=== PATIENT | male | born 2000 | race Caucasian/White ===

== ENCOUNTER 2024-09-08 21:01 | Emergency (ER) | payer MEDICAID, SELFPAY ==
[2024-09-08] VITALS (12 sets, daily range): BP systolic 101; BP diastolic 61–69; PULSE 59–104; RESP 16–18; TEMP 36.6; O2SAT 98
--- NOTE | 2024-09-08 20:45 | RT.EKG_ITS ---
APPROVED REPORT Exam: Resting ECG Reason for Exam: Seizure Patient Location: E HR:88 bpm ECG Measurements Heart Rate 88 AXIS OK 127 P 66 QRSd 88 QRS 80 QT 359 T 71 QTc 435 Conclusion Sinus rhythm...normal P axis, V-rate 60- 99 ST depressionprobable normal early repol pattern...ST depression age<55
[2024-09-08 21:31] LABS: Abs Immature Grans 0.03 10^3/uL (0.0-0.06); Absolute Basophil Count 0.07 10^3/uL (0.0-0.2); Absolute Eosinophil Count 0.16 10^3/uL (0.0-0.7); Absolute Lymphocyte Count 2.95 10^3/uL (1.2-3.4); Absolute Monocyte Count 0.92 10^3/uL (0.1-0.8); Basophils % 0.6 %; Eosinophils % 1.4 %; HCT 39.5 % (40.0-50.0); HGB 13.7 g/dL (13.5-17.5); Immature Grans % 0.3 %; Lymphocytes % 25.9 %; MCH 30.6 pg (27.0-33.0); MCHC 34.7 % (32.0-36.0); MCV 88 fL (80-95); MPV 10.3 fL (8.0-11.0); Monocytes % 8.1 %; Neutrophils % 63.7 %; Platelet Count 236 10^3/uL (130-400); RBC 4.48 10^6/uL (4.36-5.78); RDW 12.9 % (11.8-14.1); RDW-SD 41.7 fL
[2024-09-08 21:32] LABS: Absolute Neutrophil Count 7.26 10^3/uL (1.2-6.7)
[2024-09-08 21:40] LABS: Anion Gap 10.6 mmol/L (3-11); BUN 15 mg/dL (7-18); CO2 25.4 mmol/L (21.0-32.0); CREATININE 0.9 mg/dL (0.70-1.30); Calcium 9.7 mg/dL (8.5-10.1); Chloride 105 mmol/L (98-107); Estimated GFR 121.55 (mL/min/1.73m2); Glucose 103 mg/dL (74-106); Potassium 3.4 mmol/L (3.5-5.1); Sodium 141 mmol/L (136-145)
[2024-09-08 21:56] LABS: Bilirubin Negative (Negative); Blood Negative (Negative); Clarity Clear (Clear); Glucose Negative (Negative); Ketones 15 mg/dL (Negative); Leukocyte Esterase Negative (Negative); Nitrite Negative (Negative); Specific Gravity 1.025 (1.005-1.025); Urobilinogen 0.2 mg/dL (Up to 0.2)
--- NOTE | 2024-09-08 22:47 | ED.GENADUL_ITS ---
Discharge Plan Disposition Patient Disposition: Home Discharge Details Clinical Impression: Syncope Primary Care Provider: Sandy Espino ED Provider: Mary Beaver Home Meds and New Rx's Prescriptions: No Action No Known Home Meds Discharge Instructions Additional Instructions: Please call your primary care provider first thing in the morning to schedule fo llow-up appointment for further evaluation into the cause of your episode of passing out today. It is likely that there are many factors leading to your passing out, including heat, dehydration, and exertion. Your blood work, EKG, and urine was all reassuring. It did show that you are dehydrated. Is very important that you drink plenty of water throughout the day, especially while you are working. Eat regular meals, including snacks when you are working hard. If you start to feel lightheaded, please sit down and get into a cool area immediately. Ice on the back of your neck may be helpful. Practice good deep breathing. Return to emergency care if you develop new episodes of passing out, chest pains, difficulty breathing, or if you are very worried you will be rechecked again immediately. Discharge Data Discharge Date/Time-TO BE ENTERED AT DEPARTURE: 09/08/24 22:59 HPI General Date/Time Provider Initiated Documentation: 09/08/24 21:20 . HPI Narrative: Tray is a 23-year-old male who presented to the emergency department today for evaluation of syncope. 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 Symptoms worsened progressively, including impaired speech and intermittent loss of consciousness; woke up as he was getting into the stretcher. Denies any head injury or fall onto the ground during syncopal episode.. Blood glucose checked in ambulance. He does admit to decreased fluid intake today, consumed half a liter of coconut water during his 3-hour shift. Did not drink any water prior to work, primarily consumes fruits and vegetables for hydration. Denies recent illnesses, fevers, chills, unusual headaches, vision changes, change in bowel or bladder function, weakness or difficulty ambulating at this time. Currently feels high like marijuana effects but with clear vision. Past medical history significant for Hirschsprung's disease with functioning ileostomy bag. Light smoker, uses marijuana, last used 6 hours ago. No recent use of pills or intravenous drugs. Has a regular doctor for follow- up. He does report that he had a similar episode last year post-coital, resulting in fall and head injury. Related Data Home Medications ?Medication ?Instructions ?Recorded ?Confirmed Unknown [No Known Home Meds] 07/24/14 09/08/24 Allergies Allergy/AdvReac Type Severity Reaction Status Date / Time No Known Allergies Allergy Unverified 09/08/24 21:12 General Stated Complaint: [facility]Medical MERCEDES: 3 Exam Narrative Exam Narrative: General Appearance: Alert and oriented, no acute distress. Vital signs: Within normal limits. HEENT: Mild cervical lymphadenopathy, moist mucous membranes, EOMs intact. Respiratory: Clear lung sounds bilaterally, easy work of breathing. Cardiovascular: Normal heart sounds. Gastrointestinal: Soft, nondistended, nontender abdomen, ostomy bag in place on right side of abdomen, no sores. Lymphatic: Mild cervical lymphadenopathy. Neurological: Cranial nerves II-XII intact, normal [id number]-[id number], xyfzeu-to-lqip, Romberg, rapid alternating movements, balance, gait, heel-toe walk. Psychiatric: Normal. Course Vital Signs Vital signs: Vital Signs Temperature 36.6 C 09/08/24 20:59 Pulse 104 H 09/08/24 20:59 Respiratory Rate 16 09/08/24 20:59 Blood Pressure 101/61 09/08/24 20:59 Pulse Oximetry 98 09/08/24 20:59 Temperature 36.6 C 09/08/24 21:13 Temperature Source Oral 09/08/24 20:59 Pulse 104 H 09/08/24 21:13 Pulse 71 09/08/24 22:00 Respiratory Rate 18 09/08/24 21:13 Blood Pressure 101/69 09/08/24 21:13 Pulse Oximetry 98 09/08/24 21:13 Oxygen Delivery Method Room Air 09/08/24 21:13 Oxygen Flow Rate 0 09/08/24 20:59 Lab/Test Results Lab/Test Results: Laboratory Tests Range/Units 09/08/24 21:25 WBC (4.4-10.8) 10^3/uL 11.40 H RBC (4.36-5.78) 10^6/uL 4.48 Hgb (13.5-17.5) g/dL 13.7 Hct (40.0-50.0) % 39.5 L MCV (80-95) fL 88 MCH (27.0-33.0) pg 30.6 MCHC (32.0-36.0) % 34.7 RDW (11.8-14.1) % 12.9 Plt Count (130-400) 10^3/uL 236 MPV (8.0-11.0) fL 10.3 Immature Gran % % 0.3 Neutrophils % % 63.7 Lymphocytes % % 25.9 Monocytes % % 8.1 Eosinophils % % 1.4 Basophils % % 0.6 Nucleated RBC % (0.0-0.3) % 0.0 Absolute Neutrophils (1.2-6.7) 10^3/uL 7.26 H Absolute Lymphocytes (1.2-3.4) 10^3/uL 2.95 Absolute Monocytes (0.1-0.8) 10^3/uL 0.92 H Absolute Eosinophils (0.0-0.7) 10^3/uL 0.16 Absolute Basophils (0.0-0.2) 10^3/uL 0.07 Sodium (136-145) mmol/L 141 Potassium (3.5-5.1) mmol/L 3.4 L Chloride (98-107) mmol/L 105 Carbon Dioxide (21.0-32.0) mmol/L 25.4 Anion Gap (3-11) mmol/L 10.6 BUN (7-18) mg/dL 15 Creatinine (0.70-1.30) mg/dL 0.9 Est GFR (CKD-EPI 2020) (mL/min/1.73m2) 121.55 Glucose (74-106) mg/dL 103 Calcium (8.5-10.1) mg/dL 9.7 Urine Color (Yellow) Dark Yellow Urine Clarity (Clear) Clear Urine pH (5-8) 6.0 Ur Specific [place] (1.005-1.025) 1.025 Urine Protein (Neg-Trace) mg/dL Trace Urine Ketones (Negative) mg/dL 15 H Urine Blood (Negative) Negative Urine Nitrite (Negative) Negative Urine Bilirubin (Negative) Negative Urine Urobilinogen (Up to 0.2) mg/dL 0.2 Ur Leukocyte Esterase (Negative) Negative Urine Glucose (Negative) mg/dL Negative Medical Decision Making Initial Assessment: 23-year-old male presenting with symptoms of hyperventilation, lightheadedness, and numbness in hands, feet, and lips. Possible heatstroke due to exertion in a hot kitchen environment. Concentrated urine suggests inadequate hydration. Differential Diagnosis: - Hyperventilation: Symptoms include numbness in hands, feet, and lips. Plan: Advise optimal hydration and monitor for recurrence. - Heatstroke: Exertion in hot environment. Plan: Ensure adequate fluid intake and avoid excessive heat exposure. -Electrolyte imbalance - Hypoglycemia -Recreational drug use reaction - No red flags concerning for seizure, head injury, or other serious etiology requiring further blood work or diagnostic imaging ED Course: - Physical exam reassuring - Advised to drink a big glass of room temperature water. -Blood work performed - EKG obtained I independently interpreted the following tests: EKG reassuring, normal sinus rhythm rate 88, no changes consistent with acute ischemia, normal intervals. CBC notable for mild leukocytosis, likely stress demargination. Mild hypokalemia, potassium 3.4. CMP otherwise unremarkable. UA consistent with dehydration, with specific gravity 1025 and dark yellow urine U-Tox significant only for THC Final Assessment: Symptoms likely due to mixed process involving vagal nerve stimulation, lightheadedness, and hyperventilation. Possible heatstroke due to exertion. Concentrated urine suggests inadequate hydration. Physical exam reassuring. Clinical Impression: - Syncope - Mild dehydration Disposition: - Discharge: Patient to be discharged with advice on maintaining optimal h ydration and avoiding excessive heat exposure. - Follow-Up: Follow up with regular doctor at [facility]. Patient Education: Advised to maintain optimal hydration and monitor for recurrence of symptoms. Discussed the importance of fluid intake, especially in hot environments. MDM Components Evaluation: - Number of Differential Diagnoses or Management Options: Hyperventilation, Heatstroke - Amount and Complexity of Data Reviewed: Physical exam findings, patient history - Risk of Complication and Morbidity or Mortality: Low risk with proper hydration and avoidance of excessive heat exposure. Patient consented to the use of SHADIA Quality:SDOH Health Related Social Needs: No Data to Display [facility] All Active Problems (Updated 09/08/24 @ 22:47 by Mary Gonzalez) Syncope (Chronic) Social History Smoking/Tobacco Use Status: Former Tobacco Use Smoking risk assessment performed?: Yes Alcohol Intake: current Alcohol type: hard liquor Drug use: Never Substance use type: former substance user PAWSS Have you Been Recently Intoxicated or Drunk Within the Last 30 days?: Yes Have you Ever Experienced Previous Episodes of Alcohol Withdrawal?: No Have you ever Experienced Withdrawal Seizures?: No Have you ever Experienced Delirium Tremens(DT)s?: No Have you ever undergone Alcohol Rehabilitation Treatment (i.e, inpt ot outpatient treatment programs)?: No Have you ever Experienced Blackouts?: No Have you ever Combined Alcohol with other Downers within the last 90 days?: No Have you ever Combined Alcohol with any other Substance of Abuse during the last 90 days?: No Result: 1
[2024-09-08 22:51] LABS: *AMPHETAMINES SCREEN URINE Negative (Negative); *BARBITURATES SCREEN URINE Negative (Negative); *BENZODIAZEPINES SCREEN URINE Negative (Negative); Cannabinoids THC Positive (Negative); Cocaine Screen,Urine Negative (Negative); METHADONE URINE SCREEN Negative (Negative); OPIATES URINE SCREEN Negative (Negative); Tricyclic Antidepressants Negative (Negative)
== END 2024-09-08 22:59 | disposition home or self-care (01) ==
LOC: ER 22:58
PROVIDERS: Emergency Medicine Emergency Medical Services; Emergency Provider Nurse Practitioner Family; PCP Nurse Practitioner Family
DX: R55 Syncope and collapse (principal); E86.0 Dehydration
CPT/HCPCS: 99283; 99284; 36416; 82962; 80048; 80307; 93005; 81003; 85025; 93010

== ENCOUNTER 2024-09-09 01:06 | Outpatient (CLI) | payer MEDICAID, SELFPAY ==
--- NOTE | 2024-09-09 | DI.CT_ITS ---
Exam(s) CT HEAD WO EXAM: CT HEAD WO CLINICAL HISTORY: SYNCOPE AND COLLAPSE R55 LOSS OF CONSCIOUSNESS,seizure activity. TECHNIQUE: Imaging Protocol: Axial computed tomography images with coronal and sagittal reformatted images were created and reviewed COMPARISON: No exams were available for comparison FINDINGS: There are no skull fractures. There is no fluid in the visualized paranasal sinuses. There is no evidence of intracranial hemorrhage, mass effect, or shift of midline structures. There are no extra-axial fluid collections. The ventricles are not enlarged or shifted and there is no blo od within the ventricular system nor within the basal cisterns. IMPRESSION: No acute intracranial findings on this noninfused CT scan of the brain. RADIATION DOSE DELIVERED: 915.26mGy.cm Total DLP DATA REPOSITORY: All CT scans at this facility are submitted to the National Radiology Data Registry (NRDR) Dose Index Registry (DIR) with the [employer] (ACR). RADIATION OPTIMIZATION: All CT scans at this facility use at least one of these dose optimization te chniques: automated exposure control; mA and/or kV adjustment per patient size (includes targeted exa ms where dose is matched to clinical indication); or iterative reconstruction.
== END 2024-09-09 01:26 ==
LOC: DI 01:06
PROVIDERS: PCP Nurse Practitioner Family; Visit Provider Nurse Practitioner Family
DX: R55 Syncope and collapse (principal); R56.9 Unspecified convulsions
CPT/HCPCS: 70450

== ENCOUNTER 2024-11-04 01:11 | Outpatient (CLI) | payer MEDICAID, SELFPAY ==
--- NOTE | 2024-11-04 | DI.RAD_ITS ---
Exam(s) XR CHEST 2V PA LATERAL EXAM: XR CHEST 2V PA LATERAL CLINICAL HISTORY: DYSPNEA,SOB,R06.02,COUGH. TECHNIQUE: 2D digital imaging was performed. COMPARISON: No exams were available for comparison FINDINGS: 2 views: Heart size is normal. The mediastinum is not widened. Lungs are clear. No infiltrates nor pleural effusions. Bilateral hyperinflation. No fractures. No pneumothorax. IMPRESSION: No acute pulmonary findings.Bilateral hyperinflation noted. DATA REPOSITORY: RADIATION DOSE DELIVERED:
== END 2024-11-04 01:31 ==
LOC: DI 01:11
PROVIDERS: PCP Nurse Practitioner Family; Visit Provider Nurse Practitioner Family
DX: R06.02 Shortness of breath (principal)
CPT/HCPCS: 71046